=== PATIENT | female | born 1960 | race Caucasian/White ===

== ENCOUNTER 2019-08-01 20:02 | Observation (INO) ==
[2019-08-01] MEDS ORDERED: 0.9 % Sodium Chloride 1,000 ML IVC ONE (20:14)
[2019-08-01 20:30] LABS: Basophils % 0.2 %; Eosinophils # 0.1 K/mcL (0.0-0.6); Eosinophils % 0.5 %; Hematocrit 44.6 % (35.3-44.9); Hemoglobin 14.5 g/dL (11.5-15.4); Immature Granulocytes % 0.6 % (0-4); Lymphocytes # 1.3 K/mcL (0.6-4.6); Lymphocytes % 13.1 %; Mean Corpuscular HGB Conc 32.5 g/dL (31.6-35.5); Mean Corpuscular Hemoglobin 30.3 pg (28.0-33.3); Mean Corpuscular Volume 93.3 fL (83.0-100.0); Mean Platelet Volume 10.6 fL (9.4-12.4); Monocytes # 0.4 K/mcL (0.0-1.3); Neutrophils # 7.8 K/mcL (1.6-8.9); Platelet Count 167 K/mcL (140-400); Red Blood Count 4.78 M/mcL (3.82-4.97); Segmented Neutrophils % 81.6 %; White Blood Count 9.6 K/mcL (4.3-11.1)
[2019-08-01 20:47] LABS: BUN/Creatinine Ratio 18 (6-26); Blood Urea Nitrogen 13 mg/dL (6-20); C-Reactive Protein < 5 mg/L (Less than 10); Calcium 9.1 mg/dL (8.6-10.3); Carbon Dioxide 27 mEq/L (23-29); Chloride 108 mEq/L (98-107); Creatine Kinase 332 Units/L (30-223); Glucose 133 mg/dL (70-105); Osmolality,Calculated 292 (280-300); Phosphorous 4.8 mg/dL (2.7-4.5); Potassium 3.3 mEq/L (3.5-5.1); Sodium 140 mEq/L (136-145); Troponin I < 0.03 ng/mL (< 0.04); eGFR For African Americans > 60 (> 60); eGFR For Non-African Americans > 60 (> 60)
[2019-08-01 20:54] LABS: Bilirubin,Urine Negative (Negative); Blood,Urine Negative (Negative); Clarity,Urine Clear (Clear); Color,Urine Light-Yellow (Yellow); Glucose,Urine (UA) Normal (Normal); Ketones,Urine Negative (Negative); Leukocyte Esterase,Urine Negative (Negative); Nitrite,Urine Negative (Negative); Protein,Urine Negative (Neg-Trace); Specific Gravity,Urine 1.015 (1.010-1.025); Urobilinogen,Urine Normal (Normal)
[2019-08-01 21:00] LABS: Thyroid Stimulating Hormone 4.081 mcIU/mL (0.340-5.600)
[2019-08-01] MEDS ORDERED: Potassium Chloride Elixir 20 MEQ/15 ML UDC PO ONE (21:16)
[2019-08-01 22:44] LABS: Amphetamine Screen,Urine Positive ng/mL (Cutoff=1000); Barbiturate Screen,Urine Negative ng/mL (Cutoff=200); Benzodiazepines Screen,Urine Positive ng/mL (Cutoff=200); Cannabinoid Screen,Urine Positive ng/mL (Cutoff = 50); Cocaine Screen,Urine Negative ng/mL (Cutoff= 300); Opiate Screen,Urine Negative ng/mL (Cutoff=300); Phencyclidine Screen,Urine Negative ng/mL (Cutoff=25)
[2019-08-01] MEDS ORDERED: Naloxone 0.4 MG/ML INJ IVP PRN (23:04)
[2019-08-01] MEDS ORDERED: *HR* Promethazine 25 MG/ML VIAL IVP PRN (23:04)
[2019-08-01] MEDS ORDERED: 0.9 % Sodium Chloride 1,000 ML IVC SCH (23:15)
[2019-08-02 03:28] LABS: Red Cell Distribution Width 11.9 % (11.5-14.5)
[2019-08-02 03:43] LABS: Hematocrit 37.5 % (35.3-44.9); Hemoglobin 12.5 g/dL (11.5-15.4); Immature Platelets 7.2 % (1.1-6.1); Mean Corpuscular HGB Conc 33.3 g/dL (31.6-35.5); Mean Corpuscular Hemoglobin 30.3 pg (28.0-33.3); Mean Corpuscular Volume 90.8 fL (83.0-100.0); Red Blood Count 4.13 M/mcL (3.82-4.97); White Blood Count 6.1 K/mcL (4.3-11.1)
[2019-08-02 03:48] LABS: BUN/Creatinine Ratio 20 (6-26); Blood Urea Nitrogen 10 mg/dL (6-20); Calcium 8.6 mg/dL (8.6-10.3); Carbon Dioxide 25 mEq/L (23-29); Chloride 110 mEq/L (98-107); Glucose 94 mg/dL (70-105); Magnesium 1.9 mg/dL (1.6-2.6); Osmolality,Calculated 289 (280-300); Phosphorous 3.4 mg/dL (2.7-4.5); Potassium 4.2 mEq/L (3.5-5.1); Sodium 140 mEq/L (136-145); eGFR For African Americans > 60 (> 60); eGFR For Non-African Americans > 60 (> 60)
[2019-08-02 04:09] LABS: Vitamin B12 309 pg/mL (250-1100); Vitamin D 25 Hydroxy 27 ng/mL (30-80)
[2019-08-02 07:37] VITALS: BP 102/54
[2019-08-03 10:40] LABS: Estimated Average Glucose 131 mg/dl
== END 2019-08-02 10:00 | disposition home or self-care (01) ==
LOC: EMEROOARM 20:02 → 3BNU 20:02 → SUATTDRO 22:17 → 3BNU 22:44
PROVIDERS: ADMIT Internal Medicine; ATTEND Family Medicine